=== PATIENT | male | born 1985 | race Caucasian/White ===

== ENCOUNTER 2019-02-05 16:58 | Inpatient (IN) | payer MEDICAID ==
[~2019-02-05] VITALS: Ht 175.3 cm; Wt 74.8 kg
[2019-02-05] MEDS ORDERED: GABA-531 PO (17:25)
[2019-02-05] MEDS ORDERED: ARIP15TA2 PO (17:25)
[2019-02-05] MEDS ORDERED: RISP2 PO (17:25)
[2019-02-05 18:17] LABS: BASOPHILS % (AUTO) 0.6 % (0.0-2.0); EOSINOPHILS % (AUTO) 1.3 % (1.0-6.0); HEMOGLOBIN 13.5 g/dL (13.5-17.5); LYMPHOCYTES # (AUTO) 2.4 K/uL (1.0-4.8); LYMPHOCYTES % (AUTO) 38.4 % (22.0-44.0); MEAN CORPUSCULAR HEMOGLOBIN 30.1 pg (26.0-34.0); MEAN CORPUSCULAR HGB CONC 33.7 G/dL (31.0-37.0); MEAN CORPUSCULAR VOLUME 89 fL (80-100); MONOCYTES # (AUTO) 0.5 K/uL (0.1-1.0); MONOCYTES % (AUTO) 7.7 % (2.0-9.0); NEUTROPHILS # (AUTO) 3.2 K/uL (1.8-7.7); PLATELET COUNT (AUTO) 213 K/uL (150-450); RED BLOOD CELL COUNT(AUTO) 4.48 MIL/uL (4.50-5.90); RED CELL DISTRIBUTION WIDTH 14.3 % (11.5-14.5)
[2019-02-05 18:27] LABS: AMPHET/METH SCREEN,URINE NEGATIVE (NEGATIVE); BARBITURATE SCREEN, URINE NEGATIVE (NEGATIVE); BENZODIAZEPINES SCREEN,URINE NEGATIVE (NEGATIVE); CANNABINOID SCREEN,URINE POSITIVE (NEGATIVE); COCAINE SCREEN,URINE NEGATIVE (NEGATIVE); METHADONE SCREEN, URINE NEGATIVE (NEGATIVE); OPIATE SCREEN,URINE NEGATIVE (NEGATIVE)
[2019-02-05 18:29] LABS: PHENCYCLIDINE SCREEN,URINE NEGATIVE (NEGATIVE)
[2019-02-05 18:30] LABS: ANION GAP 8 mmol/L (8-16); CALCIUM, TOTAL 8.1 mg/dL (8.8-10.5); CARBON DIOXIDE 28 mmol/L (22-29); CHLORIDE 104 mmol/L (98-107); CREATININE 0.61 mg/dL (0.60-1.30); GLOMERULAR FILTR. RATE CALC > 60 mL/min (>60); GLUCOSE,RANDOM 85 mg/dL (70-110); POTASSIUM 3.9 mmol/L (3.5-5.1); SODIUM SERUM 140 mmol/L (136-145); UREA NITROGEN, BLOOD 8 mg/dL (7-18)
[2019-02-05 18:37] LABS: ALANINE AMINOTRANSFERASE 21 U/L (12-78); ALBUMIN 3.8 g/dL (3.4-5.0); ALKALINE PHOSPHATASE 61 U/L (46-116); ASPARTATE AMINOTRANSFERASE 16 U/L (15-37); BILIRUBIN,TOTAL 0.2 mg/dL (0.1-1.0)
[2019-02-05] MEDS ORDERED: HALOPERIDOL 5 MG TABLET PO PRN (19:45)
[2019-02-05] MEDS ORDERED: DiphenhydrAMINE HCL 50 MG/ML VIAL IM ONE (23:45)
[2019-02-05] MEDS ORDERED: HALOPERIDOL LACTATE 5 MG/ML VIAL IM ONE (23:45)
[2019-02-05] MEDS ORDERED: LORazepam 2 MG/ML VIAL IM ONE (23:45)
[2019-02-06 05:53] LABS: CHOL/HDL RATIO 2.2 (4.2-7.3)
[2019-02-06 06:01] VITALS: BP 139/67
[2019-02-06] MEDS ORDERED: INFLUENZA VIRUS VACCINE QVS 2019-20 (3YR+)/PF 60 MCG/0.5 ML SYRINGE IM ONE (06:30)
[2019-02-06] MEDS ORDERED: PETROLATUM,WHITE 28 GM JELLY TP PRN (07:00)
[2019-02-06] MEDS ORDERED: ACETAMINOPHEN 325 MG TABLET PO PRN (07:00)
[2019-02-06] MEDS ORDERED: GuaiFENesin/D-METHORPHAN [SUGAR-FREE] 200-20MG/10 ML SYRUP UDCUP PO PRN (07:00)
[2019-02-06] MEDS ORDERED: ONDANSETRON HCL 4 MG TABLET PO PRN (07:00)
[2019-02-06] MEDS ORDERED: ALBUTEROL SULFATE HFA 90 MCG/PUFF 8 GM INHALER IH PRN (07:00)
[2019-02-06] MEDS ORDERED: MAG HYDROX/AL HYDROX/SIMETH ES 30 ML SUSPENSION UDCUP PO PRN (07:00)
[2019-02-06] MEDS ORDERED: DOCUSATE SODIUM 100 MG CAPSULE PO PRN (07:00)
[2019-02-06] MEDS ORDERED: IBUPROFEN 400 MG TABLET PO PRN (07:00)
[2019-02-06] MEDS ORDERED: CloNIDine HCL 0.1 MG TABLET PO PRN (07:00)
[2019-02-06] MEDS ORDERED: NICOTINE 14 MG/24 HOUR PATCH TD PRN (07:00)
[2019-02-06] MEDS ORDERED: MAGNESIUM HYDROXIDE SUSPENSION 30 ML UDCUP PO PRN (07:00)
[2019-02-06] MEDS ORDERED: LOPERAMIDE HCL 2 MG CAPSULE PO PRN (07:00)
[2019-02-06] MEDS: LORazepam 2 MG TABLET PO PRN (09:47)
[2019-02-06 11:50] VITALS: BP 135/73
[2019-02-06] MEDS: GABAPENTIN 300 MG CAPSULE PO SCH ×2 (13:37→17:17)
[2019-02-06] MEDS: ARIPiprazole 15 MG TABLET PO SCH (13:37)
[2019-02-06 16:07] VITALS: BP 116/76
[2019-02-06] MEDS: RisperiDONE 2 MG TABLET PO SCH (17:17)
[2019-02-07] MEDS: LORazepam 2 MG TABLET PO PRN ×2 (00:53→14:44)
[2019-02-07] MEDS: ZOLPIDEM TARTRATE 10 MG TABLET PO PRN ×2 (00:53→23:46)
[2019-02-07 01:06] VITALS: BP 138/86
[2019-02-07] MEDS: ARIPiprazole 15 MG TABLET PO SCH (08:04)
[2019-02-07] MEDS: RisperiDONE 2 MG TABLET PO SCH ×2 (08:04→16:18)
[2019-02-07] MEDS: GABAPENTIN 300 MG CAPSULE PO SCH ×3 (08:04→16:18)
[2019-02-07 09:20] VITALS: BP 115/63
[2019-02-07 16:00] VITALS: BP 110/62
[2019-02-08 00:20] VITALS: BP 157/78
[2019-02-08 07:54] VITALS: BP 137/75
[2019-02-08] MEDS: ARIPiprazole 15 MG TABLET PO SCH (08:04)
[2019-02-08] MEDS: GABAPENTIN 300 MG CAPSULE PO SCH ×2 (08:04→13:15)
[2019-02-08] MEDS: RisperiDONE 2 MG TABLET PO SCH (08:04)
[2019-02-08 08:19] VITALS: BP 112/77
[2019-02-08] MEDS ORDERED: OLAN15TA2 PO (10:22)
[2019-02-08] MEDS ORDERED: CEPH-582 PO (10:24)
[2019-02-08] MEDS ORDERED: MULT-1239 PO (10:25)
[2019-02-08] MEDS ORDERED: BACI3.5O22 TP (10:29)
[2019-02-08] MEDS ORDERED: ARIP30TA PO (13:45)
[2019-02-08] MEDS ORDERED: RISP1TAB89 PO (13:46)
[2019-02-08] MEDS ORDERED: GABA-531 PO (13:46)
== END 2019-02-08 14:30 | disposition home or self-care (01) | DRG 753 ==
LOC: EMS 16:59 → 3EC 02-06 05:21
PROVIDERS: ADMIT Psychiatry & Neurology Psychiatry; ATTEND Psychiatry & Neurology Psychiatry
DX: F31.9 Bipolar disorder, unspecified (principal); R45.851 Suicidal ideations; E83.51 Hypocalcemia; F20.9 Schizophrenia, unspecified; F12.90 Cannabis use, unspecified, uncomplicated; F17.210 Nicotine dependence, cigarettes, uncomplicated; F41.9 Anxiety disorder, unspecified; F43.10 Post-traumatic stress disorder, unspecified; F15.90 Other stimulant use, unspecified, uncomplicated; F10.10 Alcohol abuse, uncomplicated; Z59.0 Homelessness; Z91.5 Personal history of self-harm
CPT/HCPCS: G0480